=== PATIENT | female | born 1995 | race Caucasian/White ===

== ENCOUNTER → 2016-08-19 | Outpatient (CLI) | payer BC ==
--- NOTE | 2016-08-19 17:22 | KCIC ---
PROCEDURE MRI study of the left shoulder without contrast HISTORY Left shoulder pain with multidirectional instability. Undiagnosed connective tissue disorder. TECHNIQUE Noncontrast MRI sequences of the left shoulder were performed in all 3 planes. COMPARISON Radiographic series dated August 11, 2016. FINDINGS There is increased signal within the supraspinatus tendon consistent with tendinosis. No complete rotator cuff tear is seen. Subscapularis tendon is intact. Tendon of the long head of the biceps is intact. No muscle atrophy is seen. No subdeltoid or subacromial bursitis is seen. No significant degenerative osteoarthritis or spurring of the AC joint is seen. No AC joint separation is seen. Type 3 acromial process is seen. There is chronic erosive change of the lateral posterior aspect of the humeral head secondary to chronic acromial humeral space impingement or old impaction injury. No bright signal bone marrow edema or fracture is seen. No marrow infiltrative process is evident. The glenohumeral joint is normal. No significant joint effusion is seen. No loose osteochondral body is evident. The glenoid labrum is intact. No paralabral ganglion cyst or spinoglenoid notch ganglion cyst is seen. No muscle edema is evident. IMPRESSION No rotator cuff tear is seen. Mild tendinosis of the supraspinatus tendon. Chronic erosive change of the posterior lateral aspect of the humeral head secondary to chronic acromial humeral space impingement or could be due to an old impaction injury. Electronically signed by: Chinedu Perry MD (Aug 19, 2016 17:21:19)
--- NOTE | 2016-08-20 10:10 | KCIC ---
PROCEDURE MRI study of the right shoulder without contrast HISTORY Right shoulder pain. Right shoulder multi directional instability. Plus one diagnose connective tissue disorder TECHNIQUE Noncontrast MRI sequences of the right shoulder were performed in all 3 planes. COMPARISON Right shoulder radiographic series dated August 11, 2016. FINDINGS There is moderate increased signal within the supraspinatus tendon consistent with tendinosis. No complete rotator cuff tear is seen. The subscapularis tendon and transverse ligament are intact. The tendon of the long head of the biceps is intact. No muscle atrophy is seen. No significant degenerative osteoarthritis or spurring of the AC joint is seen. No AC joint separation is seen. There is mild spurring of the lateral inferior edge of the acromial process. Type 3 acromial process is seen. These findings of the acromial process may impinge the acromial humeral space. There is mild chronic cystic and erosive change of the lateral aspect of the humeral head secondary to chronic impingement. No fracture or marrow infiltrative process is seen. The glenohumeral joint is unremarkable. No glenohumeral joint effusion is seen. The labrum is intact. No paralabral ganglion cyst or spinoglenoid notch ganglion cyst is seen. IMPRESSION Moderate tendinosis of the supraspinatus tendon of the rotator cuff. No complete rotator cuff tear is evident. No significant subacromial or subdeltoid bursitis is seen. Impingement of the acromial humeral space by the acromial process. Electronically signed by: Chinedu Perry MD (Aug 20, 2016 10:08:46)
== END | disposition home or self-care (01) ==
LOC: KCIC MRI 15:00
PROVIDERS: ATTEND Orthopaedic Surgery
DX: M25.511 Pain in right shoulder (principal)
CPT/HCPCS: 73221